=== PATIENT | female | born 1950 | race African-American/Black ===

== ENCOUNTER 2021-12-05 13:06 | Outpatient (CLI) | payer MEDICARE, MEDICAID | END 2021-12-05 13:07 | disposition home or self-care (01) | LOC: CSHWCC 13:06 | PROVIDERS: ATTEND Nurse Practitioner Family | DX: I87.311 Chronic venous hypertension (idiopathic) with ulcer of right lower extremity (principal); L97.319 Non-pressure chronic ulcer of right ankle with unspecified severity; R60.0 Localized edema | CPT/HCPCS: 11042; 29581 ==

== ENCOUNTER 2023-10-23 15:48 | Outpatient (CLI) | payer OTHER, MEDICAID | END 2023-10-23 15:49 | disposition home or self-care (01) | LOC: CSHWCC 15:48 | PROVIDERS: ATTEND Nurse Practitioner Family | DX: I87.332 Chronic venous hypertension (idiopathic) with ulcer and inflammation of left lower extremity (principal); L97.222 Non-pressure chronic ulcer of left calf with fat layer exposed; L97.522 Non-pressure chronic ulcer of other part of left foot with fat layer exposed; E66.01 Morbid (severe) obesity due to excess calories; I73.9 Peripheral vascular disease, unspecified | CPT/HCPCS: 11042; 11045 ==

== ENCOUNTER 2023-11-06 14:58 | Outpatient (CLI) | payer OTHER, MEDICAID | END 2023-11-06 14:59 | disposition home or self-care (01) | LOC: CSHWCC 14:58 | PROVIDERS: ATTEND Nurse Practitioner Family | DX: I87.332 Chronic venous hypertension (idiopathic) with ulcer and inflammation of left lower extremity (principal); L97.222 Non-pressure chronic ulcer of left calf with fat layer exposed; L97.522 Non-pressure chronic ulcer of other part of left foot with fat layer exposed; E66.01 Morbid (severe) obesity due to excess calories; I73.9 Peripheral vascular disease, unspecified | CPT/HCPCS: 11042 ==

== ENCOUNTER 2023-11-19 14:06 | Outpatient (CLI) | payer OTHER, MEDICAID | END 2023-11-19 14:07 | disposition home or self-care (01) | LOC: CSHWCC 14:06 | PROVIDERS: ATTEND Nurse Practitioner Family | DX: I87.332 Chronic venous hypertension (idiopathic) with ulcer and inflammation of left lower extremity (principal); L97.222 Non-pressure chronic ulcer of left calf with fat layer exposed; L97.522 Non-pressure chronic ulcer of other part of left foot with fat layer exposed; I73.9 Peripheral vascular disease, unspecified; E66.01 Morbid (severe) obesity due to excess calories | CPT/HCPCS: 99212; G0463 ==

== ENCOUNTER 2024-01-30 16:38 | Emergency (ER) | payer OTHER, MEDICAID ==
[2024-01-30] MEDS ORDERED: Metoprolol Tartrate 5 MG (5 mL) VIAL ONE ×2 (17:05→19:20)
[2024-01-30 17:11] LABS: #Basophils 0.04 10x3/uL (0.0-0.2); #Eosinphils 0.26 10x3/uL (0.0-0.5); #Monocytes 0.55 10x3/uL (0.0-1.1); #Neutrophils 3.96 10x3/uL (1.5-8.4); %Basophils 0.5 % (0.0-2.0); %Eosinophils 3.4 % (0.0-6.0); %Lymphocytes 36.7 % (18.0-47.0); %Monocytes 7.2 % (0.0-10.0); %Neutrophils 52.1 % (40.0-75.0); Hematocrit 29.3 % (34.9-44.5); Hemoglobin 9.4 g/dL (12.0-15.5); Mean Corpuscular HGB CONC 32.1 g/dL (32.0-36.0); Mean Corpuscular Hemoglobin 28.5 pg (27.0-33.0); Mean Corpuscular Volume 88.8 fL (81.6-98.3); Mean Platelet Volume 10.8 fL (7.4-10.4); Platelet Count 198 10x3/uL (150-450); RBC Distribution Width 15.3 % (11.5-14.5); White Blood Cell (WBC) Count 7.6 10x3/uL (3.5-10.5)
[2024-01-30 17:23] LABS: ALT (SGPT) 11 U/L (8-55); AST (SGOT) 17 U/L (5-34); Alkaline Phosphatase 57 U/L (40-110); Anion Gap 13 mmol/L (10-20); BUN (Urea Nitrogen) 15 mg/dL (9.8-20.1); Bilirubin, Total 0.3 mg/dL (0.2-1.2); Calc. Creatinine Clearance 0 mL/min (70-130); Calcium 8.3 mg/dL (7.8-10.44); Carbon Dioxide 18 mmol/L (23-31); Chloride 112 mmol/L (98-107); Estimated GFR 69; Globulin 2.4 g/dL (2.4-3.5); Glucose 176 mg/dL (83-110); Potassium 3.4 mmol/L (3.5-5.1); Protein, Total 5.4 g/dL (5.8-8.1); Sodium 140 mmol/L (136-145)
[2024-01-30 17:25] LABS: INR-International Normal Ratio 1.1; PTT 22.9 sec (22.0-33.0); Prothrombin Time 11.8 sec (9.5-12.1)
[2024-01-30 17:26] LABS: Troponin I 0.011 ng/mL (< 0.028)
[2024-01-30] MEDS ORDERED: EPINEPHrine 1 MG/10 ML Abboject SYRINGE ONE (17:40)
[2024-01-30] MEDS ORDERED: PHENYLEPHRINE-NS 100 MCG/ML 10 ML SYRINGE FS SCH (18:00)
[2024-01-30] MEDS ORDERED: Esmolol 2,500 MG/250 ML 250 ML ONE (19:16)
[2024-01-30] MEDS ORDERED: dilTIAZem 125 MG/25 ML SDV ONE (19:36)
[2024-01-30] MEDS ORDERED: Acetaminophen 500 MG TAB ONE (22:55)
== END 2024-01-30 23:47 | disposition short-term general hospital (02) ==
LOC: CSHERS 16:38
DX: I48.91 Unspecified atrial fibrillation (principal); I83.891 Varicose veins of right lower extremity with other complications; I10 Essential (primary) hypertension; Z79.01 Long term (current) use of anticoagulants; Z79.899 Other long term (current) drug therapy; Z79.82 Long term (current) use of aspirin
CPT/HCPCS: 71045; 80053; 83605; 84484; 85025; 85610; 85730; 86850; 86900; 86901; 93005; J0171; 36415; 93010; 96365; 96375

== ENCOUNTER 2024-12-07 15:14 | Outpatient (CLI) | payer OTHER | END 2024-12-07 15:15 | disposition home or self-care (01) | LOC: CSHWCC 15:14 | PROVIDERS: ATTEND Nurse Practitioner Family | DX: I87.331 Chronic venous hypertension (idiopathic) with ulcer and inflammation of right lower extremity (principal); L97.811 Non-pressure chronic ulcer of other part of right lower leg limited to breakdown of skin; I73.9 Peripheral vascular disease, unspecified; E66.01 Morbid (severe) obesity due to excess calories | CPT/HCPCS: 99212; G0463 ==